=== PATIENT | male | born 1960 | race American Indian/Alaskan Native ===

== ENCOUNTER 2017-06-02 10:26 | Emergency (ER) | payer OTHER ==
[2017-06-02] MEDS ORDERED: ASPIRIN PO ONE (10:48)
[2017-06-02 11:49] LABS: Basophils # (Auto) 0.2 K/mm3 (0.0-0.1); Basophils % (Auto) 2.7 % (0.0-1.8); Eosinophils # (Auto) 0.4 K/mm3 (0.0-0.4); Eosinophils % (Auto) 6.3 % (0.0-4.3); Hematocrit 45.3 % (35.5-45.6); Hemoglobin 14.3 gm/dl (11.8-15.2); Lymphocytes # (Auto) 1.8 K/mm3 (1.2-5.4); Lymphocytes % (Auto) 29.8 % (13.4-35.0); Mean Corpuscular HGB Conc 32 % (32-34); Monocytes # (Auto) 0.6 K/mm3 (0.0-0.8); Monocytes % (Auto) 10.4 % (0.0-7.3); Platelet Count 250 K/mm3 (140-440); Red Cell Distribution Width 16.4 % (13.2-15.2)
[2017-06-02 11:54] LABS: Mean Corpuscular Hemoglobin 21 pg (28-32); Mean Corpuscular Volume 66 fl (84-94)
[2017-06-02 11:57] LABS: BUN/Creatinine Ratio 17; Blood Urea Nitrogen 15 mg/dL (9-20); Calcium 9.6 mg/dL (8.4-10.2); Hemolysis Index 5
[2017-06-02] MEDS ORDERED: TYLENOL PO ONE (15:00)
[2017-06-02 15:53] VITALS: BP 133/90
[2017-06-02] MEDS ORDERED: CARAFATE PO ONE (16:06)
[2017-06-02] MEDS ORDERED: ALUM-MAG HYDROX-SIMETH 200-200-20MG/5ML PO ONE (16:06)
[2017-06-02] MEDS ORDERED: PEPCID PO ONE (16:06)
--- NOTE | 2017-06-02 16:07 | Emergency Department Report ---
ED Chest Pain HPI - General Chief Complaint: Chest Pain Stated Complaint: CHEST PAIN/THROAT PAIN Time Seen by Provider: 06/02/17 14:24 Source: patient, RN notes reviewed Mode of arrival: Ambulatory Limitations: No Limitations - History of Present Illness Initial Comments: This is a 57-year-old male who is previously unknown to this provider, has a past medical history of hypertension, primary care doctor at the [facility]. The patient presents to the ER with a complaint of central chest pain, which radiates up to the throat, not associated with nausea, vomiting, diaphoresis. No recent aspirin use, no recent cocaine use, no leg pain, no leg swelling. Patient recently had a one hour flights to [place], and drove back within the past 2 weeks, however he reports frequent stops and bathroom brakes, and does not have any periods of prolonged immobility. No recent aspirin consumption, no family history of heart disease, DVT or pulmonary embolus that he is aware of. MD Complaint: chest pain -: Gradual Onset: during rest Pain Location: substernal Pain Radiation: other Severity scale (0 -10): 5 Quality: tightness, other Consistency: intermittent Improves With: nothing Worsens With: nothing Other Symptoms: acid taste in mouth. denies: cough, fever, syncope, rash, leg swelling, palpitations, burping Treatments Prior to Arrival: none Aspirin use within the Past 7 Days: (0) No - Related Data On Oral Contraceptives: No Previous Rx's Medication Instructions Recorded Last Taken Type Aspirin [Aspirin BABY CHEW TAB] 81 mg PO QDAY #30 tab.chew 06/02/17 Unknown Rx Allergies Allergy/AdvReac Type Severity Reaction Status Date / Time No Known Allergies Allergy Unverified 06/02/17 10:48 Heart Score - HEART Score History: Slightly suspicious EKG: Normal Age: 45-65 Risk factors: 1-2 risk factors Troponin: < normal limit HEART Score: 2 - Critical Actions Critical Actions: 0-3 pts:0.9-1.7%risk of adverse cardiac event.Candidate for discharge ED Review of Systems ROS: Stated complaint: CHEST PAIN/THROAT PAIN Other details as noted in HPI ED Past Medical Hx - Past Medical History Previous Medical History?: Yes Hx Hypertension: Yes - Surgical History Past Surgical History?: No - Social History Smoking Status: Current Every Day Smoker - Medications Home Medications: Home Medications Medication Instructions Recorded Confirmed Last Taken Type Aspirin [Aspirin BABY CHEW TAB] 81 mg PO QDAY #30 tab.chew 06/02/17 Unknown Rx ED Physical Exam - General Limitations: No Limitations General appearance: alert, in no apparent distress - Head Head exam: Present: atraumatic, normocephalic - Eye Eye exam: Present: normal appearance, EOMI. Absent: nystagmus - ENT ENT exam: Present: normal exam, normal orophraynx, mucous membranes moist, normal external ear exam - Neck Neck exam: Present: normal inspection, full ROM - Respiratory Respiratory exam: Present: normal lung sounds bilaterally. Absent: respiratory distress - Cardiovascular Cardiovascular Exam: Present: regular rate, normal rhythm, normal heart sounds. Absent: systolic murmur, diastolic murmur, rubs, gallop - GI/Abdominal GI/Abdominal exam: Present: soft, normal bowel sounds. Absent: distended, tenderness, guarding, rebound, rigid, pulsatile mass - Rectal Rectal exam: Present: deferred - Extremities Exam Extremities exam: Present: normal inspection, full ROM, normal capillary refill , other (there is no palpable cord. There is a negative negative Homans sign). Absent: pedal edema, joint swelling, calf tenderness - Back Exam Back exam: Present: normal inspection, full ROM. Absent: paraspinal tenderness , vertebral tenderness - Neurological Exam Neurological exam: Present: alert, oriented X3, CN II-XII intact, normal gait, other (Extraocular movements intact. Tongue midline. No facial droop. Facial sensation intact to light touch in the V1, V2, V3 distribution bilaterally. 5 and 5 strength in 4 extremities.. Sensation is intact to light touch in 4 extremities.). Absent: motor sensory deficit - Psychiatric Psychiatric exam: Present: normal affect, normal mood - Skin Skin exam: Present: warm, dry, intact, normal color. Absent: rash ED Course Vital Signs 06/02/17 06/02/17 06/02/17 10:49 15:52 16:14 Temperature 98.1 F Pulse Rate 85 75 Respiratory 16 16 16 Rate Blood Pressure 163/109 Blood Pressure 133/90 [Left] O2 Sat by Pulse 100 95 95 Oximetry TAL score - Tal Score Age > 65: (0) No Aspirin use within the Past 7 Days: (0) No 3 or more CAD Risk Factors: (0) No 2 or more Angina events in past 24 hrs: (0) No Known CAD with more than 50% Stenosis: (0) No Elevated Cardiac Markers: (0) No ST Deviation Greater than 0.5mm: (0) No TAL Score: 0 ED Medical Decision Making - Lab Data Result diagrams: 06/02/17 11:00 06/02/17 11:00 Vital Signs 06/02/17 06/02/17 06/02/17 10:49 15:52 16:14 Temperature 98.1 F Pulse Rate 85 75 Respiratory 16 16 16 Rate Blood Pressure 163/109 Blood Pressure 133/90 [Left] O2 Sat by Pulse 100 95 95 Oximetry Lab Results 06/02/17 06/02/17 06/02/17 Range/Units 11:00 11:00 13:49 WBC 6.1 (4.5-11.0) K/mm3 RBC 6.90 H (3.65-5.03) M/mm3 Hgb 14.3 (11.8-15.2) gm/dl Hct 45.3 (35.5-45.6) % MCV 66 L (84-94) fl MCH 21 L (28-32) pg MCHC 32 (32-34) % RDW 16.4 H (13.2-15.2) % Plt Count 250 (140-440) K/mm3 Lymph % (Auto) 29.8 (13.4-35.0) % [place] % (Auto) 10.4 H (0.0-7.3) % Eos % (Auto) 6.3 H (0.0-4.3) % Baso % (Auto) 2.7 H (0.0-1.8) % Lymph # 1.8 (1.2-5.4) K/mm3 [place] # 0.6 (0.0-0.8) K/mm3 Eos # 0.4 (0.0-0.4) K/mm3 Baso # 0.2 H (0.0-0.1) K/mm3 Seg Neutrophils % 50.8 (40.0-70.0) % Seg Neutrophils # 3.1 (1.8-7.7) K/mm3 Sodium 140 (137-145) mmol/L Potassium 4.9 (3.6-5.0) mmol/L Chloride 101.3 (98-107) mmol/L Carbon Dioxide 28 (22-30) mmol/L Anion Gap 16 mmol/L BUN 15 (9-20) mg/dL Creatinine 0.9 (0.8-1.5) mg/dL Estimated GFR > 60 ml/min BUN/Creatinine Ratio 17 % Glucose 110 H (75-100) mg/dL Calcium 9.6 (8.4-10.2) mg/dL Troponin T < 0.010 < 0.010 (0.00-0.029) ng/mL - EKG Data -: EKG Interpreted by Me EKG shows normal: sinus rhythm Rate: normal - EKG Data When compared to previous EKG there are: previous EKG unavailable Interpretation: normal EKG 06/02/17 16:50 Normal sinus, 84 bpm, normal axis, normal intervals, high left ventricular voltage, not consistent with ST elevation myocardial infarction. Repeat EKG is unchanged from the previous EKG. - Radiology Data Radiology results: image reviewed interpreted by me: X-ray of the chest is negative for acute disease - Medical Decision Making Differential diagnosis, including but not limited to: GERD, gastritis, hiatal hernia, pneumonia, acute coronary syndrome, stable angina, atypical chest pain Assessment and plan: 57-year-old male with atypical chest pain, low risk by well's criteria, low risk by TAL score, low risk by heart score, troponin negative 2, EKG unchanged 2, x-ray of the chest negative, not having pain at this time, low risk for major adverse cardiac event , instructed to follow-up with outpatient cardiology. Critical care attestation.: If time is entered above; I have spent that time in minutes in the direct care of this critically ill patient, excluding procedure time. ED Disposition Clinical Impression: Chest pain Disposition: DC-01 TO HOME OR SELFCARE Is pt being admited?: No Does the pt Need Aspirin: No Condition: Stable Instructions: Chest Pain (ED) Additional Instructions: Take the medication as directed. Follow-up with the cardiology group within the next week. Return to the ER right away with new pain, worsened pain, migration of pain, fevers or chills, intractable nausea or vomiting, change in mental status, inability to tolerate liquid feeds. Referrals: PRIMARY CARE,MD [Primary Care Provider] - 3-5 Days [facility] [Provider Group] - 3-5 Days [facility] [Provider Group] - 3-5 Days
--- NOTE | 2017-06-02 17:07 | XRay Report ---
FINAL REPORT EXAM: XR CHEST ROUTINE 2V HISTORY: cp TECHNIQUE: Two view chest PA and lateral PRIORS: None. FINDINGS: Cardiac and mediastinal contours are unremarkable. No focal pulmonary infiltrate is identified. No pleural fluid collection seen. Pulmonary vasculature is unremarkable. IMPRESSION: Negative two-view chest
== END 2017-06-02 17:21 | disposition home or self-care (01) ==
LOC: ED 10:26
DX: R07.2 Precordial pain (principal); I10 Essential (primary) hypertension; F17.200 Nicotine dependence, unspecified, uncomplicated
CPT/HCPCS: 36415; 71046; 80048; 84484; 85025; 93005; 93010

== ENCOUNTER 2018-05-23 11:17 | Emergency (ER) | payer OTHER ==
--- NOTE | 2018-05-23 11:34 | Emergency Department Report ---
Chief Complaint: Chest Pain Stated Complaint: CHEST PAIN/HEADACHE/HBP Time Seen by Provider: 05/23/18 11:31 - HPI History of Present Illness: CHEST PAIN SHARP PAINS STARTED THIS AM NO SOB NO MEDS TO TREAT NO NAUSEA HEADACHE FOR 2 DAYS PMH HTN RX LISINOPRIL CIG NO ETOH OR DRUGS MOM DEC ? CAUSE DAD DEC CVA RO ACS--AGE/HTN/CIG HTN MSE COMPLETED MSE screening note: Focused history and physical exam performed. Due to findings the following was ordered: ED Disposition for MSE Condition: Stable
[2018-05-23 12:19] LABS: Basophils # (Auto) 0.1 K/mm3 (0.0-0.1); Basophils % (Auto) 1.5 % (0.0-1.8); Eosinophils # (Auto) 0.3 K/mm3 (0.0-0.4); Eosinophils % (Auto) 4.8 % (0.0-4.3); Hematocrit 43.4 % (35.5-45.6); Hemoglobin 14.2 gm/dl (11.8-15.2); Lymphocytes # (Auto) 2.6 K/mm3 (1.2-5.4); Lymphocytes % (Auto) 42.1 % (13.4-35.0); Mean Corpuscular HGB Conc 33 % (32-34); Monocytes # (Auto) 0.7 K/mm3 (0.0-0.8); Monocytes % (Auto) 11.3 % (0.0-7.3); Platelet Count 237 K/mm3 (140-440); Red Blood Count 6.66 M/mm3 (3.65-5.03); Red Cell Distribution Width 16.4 % (13.2-15.2)
[2018-05-23 12:21] LABS: Mean Corpuscular Volume 65 fl (84-94)
--- NOTE | 2018-05-23 12:28 | Cat Scan Report ---
PROCEDURE: CT HEAD/BRAIN WO CON TECHNIQUE: Axial images obtained head without intravenous contrast HISTORY: HEADACHE HTN COMPARISONS: None FINDINGS: No acute extra-axial fluid collection. No midline shift. No cisternal effacement. Mild age-appropriat e prominence of ventricles and subarachnoid spaces. Betts-white interface maintained. No parenchymal h emorrhage. Middle cerebral arteries demonstrate no suspect hyperdensity. Calvarium no acute defect. M ucosal thickening right ethmoid sinuses. Mastoid air cells normal aeration. IMPRESSION: No acute intracranial process.. This document is electronically signed by Anuel Lawrence MD., May 23 2018 12:25:55 PM ET
[2018-05-23 12:35] LABS: Alanine Aminotransferase 14 units/L (7-56); Albumin 4.4 g/dL (3.9-5); BUN/Creatinine Ratio 16; Blood Urea Nitrogen 13 mg/dL (9-20); Calcium 9.5 mg/dL (8.4-10.2); Hemolysis Index 2
--- NOTE | 2018-05-23 13:05 | XRay Report ---
EXAM: XR CHEST ROUTINE 2V HISTORY: Chest Pain TECHNIQUE: PA and lateral chest x-ray dated 05/23/2018 at 12:23 PM COMPARISON: None available. FINDINGS: The heart size and mediastinum are within normal limits. The lung adams and costophrenic angles are clear. There is no acute parenchymal infiltrate, pleural effusion, or pneumothorax seen. The visua lized bony structures are within normal limits. IMPRESSION: 1. No evidence for acute cardiopulmonary disease seen. This document is electronically signed by Sue Hodges MD., May 23 2018 01:02:50 PM ET
[2018-05-23 14:30] VITALS: BP 149/109
[2018-05-23] MEDS ORDERED: TYLENOL PO ONE (15:26)
--- NOTE | 2018-05-23 15:30 | Emergency Department Report ---
ED Chest Pain HPI - General Chief Complaint: Chest Pain Stated Complaint: CHEST PAIN/HEADACHE/HBP Time Seen by Provider: 05/23/18 11:31 Source: patient Mode of arrival: Ambulatory Limitations: No Limitations - History of Present Illness Initial Comments: 58-year-old male with a past medical history hypertension presents to the hospital complaining of headache and chest pain. Patient has had intermittent left-sided headache for the past days. Describes it as a tingling sensation that improved after extension but slowly retiring. He denies blurred vision, nausea, vomiting, focal weakness or numbness. 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 Pain was today and tingling sensation to his left upper chest as well. He denies shortness of breath, diaphoresis, calf tenderness, edema, or long distance travel. Patient states he is compliant with his unknown dose of lisinopril daily with last dose this morning. Patient also states he typically has caffeine daily and has not had a caffeine and a little of days. No head injury reported - Related Data Previous Rx's Medication Instructions Recorded Last Taken Type Aspirin [Aspirin BABY CHEW TAB] 81 mg PO QDAY #30 tab.chew 06/02/17 Unknown Rx Ibuprofen [Motrin] 800 mg PO Q8HR PRN #30 tablet 05/23/18 Unknown Rx traMADol [Ultram 50 MG tab] 50 mg PO Q6HR PRN #20 tablet 05/23/18 Unknown Rx Allergies Allergy/AdvReac Type Severity Reaction Status Date / Time No Known Allergies Allergy Unverified 06/02/17 10:48 Heart Score - HEART Score History: Slightly suspicious EKG: Non-specific Age: 45-65 Risk factors: 1-2 risk factors Troponin: < normal limit HEART Score: 3 ED Review of Systems ROS: Stated complaint: CHEST PAIN/HEADACHE/HBP Other details as noted in HPI Comment: All other systems reviewed and negative ED Past Medical Hx - Past Medical History Previous Medical History?: Yes Hx Hypertension: Yes - Surgical History Past Surgical History?: No - Social History Smoking Status: Never Smoker Substance Use Type: None - Medications Home Medications: Home Medications Medication Instructions Recorded Confirmed Last Taken Type Aspirin [Aspirin BABY CHEW TAB] 81 mg PO QDAY #30 tab.chew 06/02/17 Unknown Rx Ibuprofen [Motrin] 800 mg PO Q8HR PRN #30 tablet 05/23/18 Unknown Rx traMADol [Ultram 50 MG tab] 50 mg PO Q6HR PRN #20 tablet 05/23/18 Unknown Rx ED Physical Exam - General Limitations: No Limitations - Other Other exam information: General: No limitations, patient is alert in no acute distress Head exam: Atraumatic, normocephalic Eyes exam: Normal appearance, pupils equal reactive to light, extraocular movements intact ENT: Moist mucous membrane, normal oropharynx, left TM normal Neck exam: Normal inspection, full range of motion, no meningismus nontender Respiratory exam: Clear to auscultation bilateral, no wheezes, rales, crackles Cardiovascular: Normal rate and rhythm, normal heart sounds, chest wall nontender Abdomen: Soft, nondistended, and nontender, with normal bowel sounds, no rebound, or guarding Extremity: Full range of motion normal inspection no deformity Back: Normal Inspection, full range of motion, no tenderness Neurologic: Alert, oriented x3, cranial nerves intact, no motor or sensory deficit Psychiatric: normal affect, normal mood Skin: Warm, dry, intact ED Course Vital Signs 05/23/18 05/23/18 11:33 14:30 Temperature 98.6 F Pulse Rate 88 83 Respiratory 18 Rate Blood Pressure 169/111 Blood Pressure 149/109 [Right] O2 Sat by Pulse 97 Oximetry TAL score - Tal Score Age > 65: (0) No Aspirin use within the Past 7 Days: (0) No 3 or more CAD Risk Factors: (0) No 2 or more Angina events in past 24 hrs: (0) No Known CAD with more than 50% Stenosis: (0) No Elevated Cardiac Markers: (0) No ST Deviation Greater than 0.5mm: (0) No TAL Score: 0 ED Medical Decision Making - Lab Data Result diagrams: 05/23/18 11:54 05/23/18 11:54 Lab Results 05/23/18 05/23/18 Range/Units 11:54 11:54 WBC 6.2 (4.5-11.0) K/mm3 RBC 6.66 H (3.65-5.03) M/mm3 Hgb 14.2 (11.8-15.2) gm/dl Hct 43.4 (35.5-45.6) % MCV 65 L (84-94) fl MCH 21 L (28-32) pg MCHC 33 (32-34) % RDW 16.4 H (13.2-15.2) % Plt Count 237 (140-440) K/mm3 Lymph % (Auto) 42.1 H (13.4-35.0) % [place] % (Auto) 11.3 H (0.0-7.3) % Eos % (Auto) 4.8 H (0.0-4.3) % Baso % (Auto) 1.5 (0.0-1.8) % Lymph # 2.6 (1.2-5.4) K/mm3 [place] # 0.7 (0.0-0.8) K/mm3 Eos # 0.3 (0.0-0.4) K/mm3 Baso # 0.1 (0.0-0.1) K/mm3 Seg Neutrophils % 40.3 (40.0-70.0) % Seg Neutrophils # 2.5 (1.8-7.7) K/mm3 Sodium 139 (137-145) mmol/L Potassium 4.3 (3.6-5.0) mmol/L Chloride 99.1 (98-107) mmol/L Carbon Dioxide 28 (22-30) mmol/L Anion Gap 16 mmol/L BUN 13 (9-20) mg/dL Creatinine 0.8 (0.8-1.5) mg/dL Estimated GFR > 60 ml/min BUN/Creatinine Ratio 16 % Glucose 87 (75-100) mg/dL Calcium 9.5 (8.4-10.2) mg/dL Total Bilirubin 0.30 (0.1-1.2) mg/dL AST 16 (5-40) units/L ALT 14 (7-56) units/L Alkaline Phosphatase 94 (35-129) units/L Troponin T < 0.010 (0.00-0.029) ng/mL Total Protein 7.5 (6.3-8.2) g/dL Albumin 4.4 (3.9-5) g/dL Albumin/Globulin Ratio 1.4 % - EKG Data -: EKG Interpreted by Ok EKG shows normal: sinus rhythm, axis (qrs 83), QRS complexes (qrsd 94), ST-T waves (no stemi/ t inv) Rate: normal - EKG Data When compared to previous EKG there are: no significant change - Radiology Data Radiology results: report reviewed ct head: naf xr chest: naf - Medical Decision Making Blood pressure improved without additional meds in the ED Tylenol provided for additional pain relief Patient counseled on monitoring his blood pressure and following up with his doctor for possible blood pressure medication adjustment Chest pain is atypical with negative troponin and unchanged EKG compared to previous. - Differential Diagnosis AK, unstable angina, hypertensive emergency, ICH, mass, tension, cluster Critical Care Time: No Critical care attestation.: If time is entered above; I have spent that time in minutes in the direct care of this critically ill patient, excluding procedure time. ED Disposition Clinical Impression: Headache, Chronic hypertension, Atypical chest pain Disposition: TO HOME OR SELFCARE Is pt being admited?: No Does the pt Need Aspirin: No Condition: Stable Instructions: Hypertension (ED), Chest Pain (ED), Acute Headache (ED), How to Take a Blood Pressure (ED) Additional Instructions: Take the medication as prescribed. Follow up with your doctor or the clinic/doctor provided. Return if symptoms worsen as indicated by your discharge instructions Prescriptions: Ibuprofen [Motrin] 800 mg PO Q8HR PRN #30 tablet PRN Reason: Pain, Moderate (4-6) traMADol [Ultram 50 MG tab] 50 mg PO Q6HR PRN #20 tablet PRN Reason: Pain Referrals: ORLANDO DOBBINS MD [Primary Care Provider] - 3-5 Days MOLINA AMOS MD [Staff Physician] - 3-5 Days Time of Disposition: 15:33
== END 2018-05-23 15:51 | disposition home or self-care (01) ==
LOC: ED 11:17
DX: I10 Essential (primary) hypertension (principal); Z79.82 Long term (current) use of aspirin
CPT/HCPCS: 36415; 70450; 71046; 80053; 84484; 85025; 93005; 93010; 99284